=== PATIENT | male | born 1970 | race African-American/Black ===

== ENCOUNTER 2019-07-06 14:59 | Emergency (ER) | payer SELFPAY ==
[2019-07-06 15:17] VITALS: BP 127/77
--- NOTE | 2019-07-06 15:30 | ED Physician Documentation ---
PD HPI HEADACHE - Stated complaint Stated Complaint: HEADACHE - Chief complaint Chief Complaint: Neuro - History obtained from History obtained from: Patient - History of Present Illness Timing - onset: Other (49-year-old gentleman with occasional headaches presents with a gradual onset headache that is frontal and bilateral that started this morning. 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 He denies fevers, neck stiffness, sinus symptoms. The headache was gradual in onset. It is not the worst headache of his life.) Review of Systems Constitutional: denies: Fever, Chills Eyes: reports: Photophobia (mild) Nose: denies: Rhinorrhea / runny nose, Congestion Respiratory: denies: Dyspnea, Cough GI: denies: Abdominal Pain, Nausea, Diarrhea PD PAST MEDICAL HISTORY - Present Medications Home Medications: Ambulatory Orders Medication Instructions Recorded Confirmed Butalb/Acetaminophen/Caffeine 1 each PO Q4H PRN #10 capsule 07/06/19 [Fioricet 50-300-40 mg Capsule] - Allergies Allergies/Adverse Reactions: Allergies Allergy/AdvReac Type Severity Reaction Status Date / Time No Known Drug Allergies Allergy Verified 07/06/19 15:14 PD ED PE NORMAL - Vitals Vital signs reviewed: Yes - General General: Alert and oriented X 3, No acute distress - HEENT HEENT: PERRL, EOMI, Ears normal, Moist mucous membranes, Pharynx benign - Neck Neck: Supple, no meningeal sign, No bony TTP - Neuro Neuro: Alert and oriented X 3, form block maker 2-12 intact, No motor deficit, No sensory deficit, Normal speech Results - Vitals Vitals: Vital Signs - 24 hr 07/06/19 15:14 Temperature 36.9 C Heart Rate 89 Respiratory 16 Rate Blood Pressure 127/77 O2 Saturation 97 Oxygen O2 Source Room air - Labs Labs: Laboratory Tests 07/06/19 07/06/19 15:37 15:37 WBC 8.9 RBC 5.04 Hgb 14.7 Hct 45.5 MCV 90.3 MCH 29.2 MCHC 32.3 RDW 14.3 Plt Count 297 MPV 9.6 Neut # (Auto) 6.3 Lymph # (Auto) 1.4 L [place] # (Auto) 0.9 Eos # (Auto) 0.2 Baso # (Auto) 0.1 Absolute Nucleated RBC 0.00 Nucleated RBC % 0.0 Sodium 139 Potassium 3.9 Chloride 103 Carbon Dioxide 27 Anion Gap 9.0 BUN 13 Creatinine 0.9 Estimated GFR (MDRD) 109 Glucose 138 H Calcium 9.1 Total Bilirubin 0.6 AST 23 ALT 20 Alkaline Phosphatase 69 Total Protein 7.5 Albumin 4.2 Globulin 3.3 Albumin/Globulin Ratio 1.3 Lipase 34 PD MEDICAL DECISION MAKING - ED course ED course: 49-year-old gentleman presents with a headache that by history sounds benign. Is not the worst of his life, no infectious symptoms or fevers or neck stiffness. No sudden onset. His main concern is the potential for lead poisoning and a lead level will be checked and I will call him if positive. Departure - Departure Disposition: 01 Home, Self Care Clinical Impression: Headache Qualifiers: Headache type: unspecified Headache chronicity pattern: acute headache Intractability: not intractable Qualified Code(s): R51 - Headache Condition: Good Record reviewed to determine appropriate education?: Yes Instructions: ED Cephalgia Unspecified Prescriptions: Butalb/Acetaminophen/Caffeine [Fioricet 50-300-40 mg Capsule] 1 each PO Q4H PRN #10 capsule PRN Reason: Headache Comments: I will call in a few days if your lead level is positive. Return for new worsening symptoms, especially neck stiffness, general worsening, fever or other new complaints. Follow-up with your doctor, next available appointment. Do not drink or drive while taking prescription headache medicine.
[2019-07-06 15:44] LABS: BASOPHILS # (AUTO) 0.1 10^3/uL (0.0-0.1); BASOPHILS % (AUTO) 0.8 %; EOSINOPHILS # (AUTO) 0.2 10^3/uL (0.0-0.7); HGB - HEMOGLOBIN 14.7 g/dL (14.0-18.0); LYMPHOCYTES # (AUTO) 1.4 10^3/uL (1.5-3.5); LYMPHOCYTES % (AUTO) 15.9 %; MEAN CORPUSCULAR HEMOGLOBIN 29.2 pg (27.0-31.0); MEAN CORPUSCULAR HGB CONC 32.3 g/dL (32.0-36.0); MEAN CORPUSCULAR VOLUME 90.3 fL (80.0-94.0); MEAN PLATELET VOLUME 9.6 fL (7.4-11.4); MONOCYTES # (AUTO) 0.9 10^3/uL (0.0-1.0); MONOCYTES % (AUTO) 9.7 %; NEUTROPHILS # (AUTO) 6.3 10^3/uL (1.5-6.6); NEUTROPHILS % (AUTO) 71.3 %; PLT - PLATELET COUNT 297 10^3/uL (130-450); RED BLOOD COUNT 5.04 10^6/uL (4.70-6.10); RED CELL DISTRIBUTION WIDTH 14.3 % (12.0-15.0); WHITE BLOOD COUNT 8.9 x10^3/uL (4.8-10.8)
[2019-07-06 15:54] LABS: ALBUMIN 4.2 g/dL (3.2-5.5); ALBUMIN/GLOBULIN RATIO 1.3 (1.0-2.2); BILIRUBIN,TOTAL 0.6 mg/dL (0.2-1.0); CALCIUM 9.1 mg/dL (8.5-10.3); CREATININE 0.9 mg/dL (0.6-1.2); TOTAL PROTEIN 7.5 g/dL (6.7-8.2)
[2019-07-08 21:24] LABS: LEAD (B) COLLECTION SAMPLE VENOUS
--- NOTE | 2019-07-09 09:07 | ED Physician Documentation ---
ED Addendum - Addendum Addendum: 07/09/19 09:06 Spoke with patient by phone RE lead level, elevated at 6, but not at a dangerous level or needing specifc treatment other than lowering future exposure. He needs documentation of the level and a return to work note. He will come to the front office developer tomorrow when I am on for a copy of lead level and return to work note.
== END 2019-07-06 16:10 | disposition home or self-care (01) ==
LOC: ED 14:59
DX: R51 Headache (principal); R78.71 Abnormal lead level in blood
CPT/HCPCS: 36415; 80053; 83655; 83690; 85025; 99282; 99283